=== PATIENT | female | born 1990 | race African-American/Black ===

== ENCOUNTER 2022-01-20 02:33 | Emergency (ER) | payer OTHER ==
[~2022-01-20] VITALS: Ht 167.6 cm; Wt 59.9 kg
--- NOTE | 2022-01-20 02:51 | NUR ---
DR CANDIE BERRIOS AT PT'S BEDSIDE
--- NOTE | 2022-01-20 02:54 | NUR ---
WOUND CARE PROVIDED. CLEANSE WITH NS AND PAT DRY. XRAY ORDERED BY
[2022-01-20] MEDS ORDERED: LIDOCAINE HCL/PF 1% 30 ML SDV ONE (02:58)
[2022-01-20] MEDS ORDERED: TDAP [DIPH/PERTUSSIS/TET] 0.5 ML VIAL IM ONE ×2 (03:00→03:18)
--- NOTE | 2022-01-20 03:13 | NUR ---
CONTENT STRATEGY LEAD AT PT'S BEDSIDE
[2022-01-20 04:43] VITALS: BP 123/70
--- NOTE | 2022-01-20 04:48 | NUR ---
Patient discharged to home in stable condition. Written and verbal after care instructions given. Patient verbalizes understanding of instruction.
== END 2022-01-20 04:49 ==
LOC: ER 02:43
DX: S91.311A Laceration without foreign body, right foot, initial encounter (principal); Z91.018 Allergy to other foods; X99.0XXA Assault by sharp glass, initial encounter; Y93.89 Activity, other specified; Y92.89 Other specified places as the place of occurrence of the external cause; Y99.8 Other external cause status
CPT/HCPCS: 12002; 73630; 90471; 90715; 99283; J3490